=== PATIENT | female | born 1965 | race Two or more races ===

== ENCOUNTER 2024-07-26 17:42 | Emergency (ER) | payer BC, SELFPAY ==
[2024-07-26] VITALS (13 sets, daily range): BP systolic 125–146; BP diastolic 60–73; PULSE 60–86; TEMP 36.7–36.8; O2SAT 93–98; BMI 27.5
--- OUTSIDE RECORDS SUMMARY | 2024-07-26 17:55 | XMS_ITS | Encounter Summary ---
Author Organization [facility] Address [address] [place] [address] Care Team Providers Care Caterpillar Driver Name Role Phone Jacki Haskins MD Primary Care Provider [phone] Lorin Velazquez MD Primary Care Provider [phone] Jacki Haskins MD Unavailable [phone] Joanne Rothman SENIOR BUSINESS DEVELOPMENT ANALYST Unavailable [phone] Jacki Haskins MD Primary Care Provider [phone] Joanne Rothman SENIOR BUSINESS DEVELOPMENT ANALYST Unavailable [phone] Encounter Details Date Type Department Care Team (Late st Contact Info) Description 09/11/2022 Orders Only [facility] [address] [place] [id number] Joanne Rothman SENIOR BUSINESS DEVELOPMENT ANALYST [address] [place], [place] [id number] Social History Tobacco Use Types Packs/Day Years Used Date Smoking Tobacco: Never Assessed Comments Unknown Sex and Gender Information Value Date Recorded Sex Assigned at Female 01/11/2023 6:41 AM EST Legal Sex Female 6:41 AM EST Gender Identity Female 01/11/2023 6:41 AM EST Sexual Orientation Not on file documented as of this encounter Plan of Treatment Not on file documented as of this encounter Procedures Procedure Name Priority Date/Time Associated Diagnosis Comments DIABETIC RETINOPATHY SCREENING - OU - BOTH EYES Routine 09/06/2022 4:32 PM EDT documented in this encounter Results * Diabetic Retinopathy Screening - OU - Both Eyes (09/06/2022 4:32 PM EDT) Anatomical Region Laterality Modality Head Other us oJanne Rothman SENIOR BUSINESS DEVELOPMENT ANALYST OPHTH PHOTOGRAPHY Final Result documented in this encounter Visit Diagnoses Not on filedocumented in this encounter Care Teams Caterpillar Driver Relationship Specialty Start Date End Date Jacki Haskins MD [address] [place] [address] PCP - General Family Medicine 08/07/22 01/17/23 Lorin Velazquez MD [address] [place] [address] PCP - General Family Medicine 01/18/23 12/17/23 Joanne Rtohman NP [address] [place] [address] PCP - [place] [employer] 03/05/2202/01 Jacki Haskins MD [address] [facility] [place] [address] PCP - General Family Medicine 12/18/23 Joanne Rothman NP [address] [place] [address] PCP - [place] [employer] 06/03/24 Jacki Haskins MD [address] [place] [address] Family Medicine 01/18/23 documented as of this encounter
--- OUTSIDE RECORDS SUMMARY | 2024-07-26 17:55 | XMS_ITS | Clinical Summary ---
Author Organization [facility] Address [address] [place] [address] Care Team Providers Care Telephone Exchange Operator Name Role Phone Jacki Haskins MD Unavailable [phone] Jacki Haskins MD Primary Care Provider [phone] Joanne Rothman PACS ADMINISTRATOR Unavailable [phone] Allergies No known active allergies Medications Lancets miscIndications:Co ntrolled type 2 diabetes mellitus without complication, without long-term current use of insulin 1 Lancet in the morning. 100 each 2 3 Active OneTouch Ultra test stripIndications:T ype 2 diabetes mellitus without complication, without long-term current use of insulin DIRECTED DAILY 90 DAYS 100 strip 1 3 Active OneTouch Ultra test strip 3 Active Lancets (OneTouch Delica Plus [id number]) misc 1 LANCET IN THE MORNING. 3 Active empagliflozin (Jardiance) 10 MGIndications:Type 2 diabetes mellitus without complication, without long-term current use of insulin Take 1 tablet (10 mg) by mouth in the morning. 30 tablet 11 4 Active metFORMIN (Glucophage) 500 MG tabletIndications: Controlled type 2 diabetes mellitus without complication, without long-term current use of insulin TAKE 1 TABLET BY MOUTH EVERY 12 HOURS WITH A MEAL 180 tablet 1 4 Active OneTouch Ultra test stripIndications:T ype 2 diabetes mellitus without complication, without long-term current use of insulin TEST DIRECTED DAILY 100 strip 2 4 Active metFORMIN (Glucophage) 500 MG tabletIndications: Type 2 diabetes mellitus with other circulatory complication, without long-term current use of insulin Take 2 tablets (1,000 mg) by mouth in the morning and 2 tablets (1,000 mg) in the evening. Take with meals. 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 01/18/2023 Type 2 diabetes mellitus wit h circulatory disorder, without long-term current use of insulin 01/18/2023 DVT (deep venous thrombosis) 01/18/2023 Elevated liver enzymes 01/18/2023 Cancer of both ovaries 01/18/2023 Superficial skin lesion 01/17/2023 Elevated liver enzymes 01/08/2023 H/O: hysterectomy 01/08/2023 Other chronic pain 01/08/2023 Paresthesia of skin 01/08/2023 Primary hypertension 01/08/2023 Acute cellulitis 01/03/2023 Hypokalemia 01/03/2023 Hypomagnesemia 01/03/2023 Type 2 diabetes mellitus wit hout complication, without long-term current use of insulin 01/03/2023 Thoracic spondylosis without myelopathy 10/18/19 19 Overview (01/08/2023): Added automatically from request for surgery [id number] Malignant neoplasm of right ovary 03/11/2015 Encounters Date Type Department Care Team Description 06/17/2024 Refill [facility] [address] [place] [address] Joanne Rothman, PACS ADMINISTRATOR Type 2 diabetes mellitus without complications from Last 3 Months Immunizations Immunization Administration Dates Next Due Influenza, injectable, quadrivalent 12/04,12/23/2021,01/31/2018, 018,12/27/2016,12/27/2016 Moderna SARS-CoV-2 Vaccination 03/02/2021,2020,04/30/2020 Zoster, Recombinant 05/10/2023,05/10/2023 Family History Medical History Relation Name Comments Diabetes Father Esophageal cancer Father Thyroid cancer Father Diabetes Mother Uterine cancer Mother Relation Name Status Comments Father Mother Social History Tobacco Use Types Packs/Day Years Used Date Smoking Tobacco: Never Cigarettes Smokeless Tobacco: Never Tobacco Cessation:Counseling Given: Not Answered Alcohol Use Standard Drinks/Week Comments Never 0 (1 standard drink = 0.6 oz pur e alcohol) Caffine: 1 cup daily Comments Unknown Sex and Gender Information Value Date Recorded Sex Assigned at Female 01/11/2023 6:41 AM EST Legal Sex Female 6:41 AM EST Gender Identity Female 01/11/2023 6:41 AM EST Sexual Orientation Not on file Last Filed Vital Signs Vital Sign Reading Time Taken Comments Blood Pressure 130/84 07/12/2023 6:47 PM EDT Pulse 82 07/12/2023 6:47 PM EDT Temperature 36.2 C (97.1 F) 07/12/2023 6:47 PM EDT Respiratory Rate 18 05/10/2023 6:22 PM EST Oxygen Saturation 97% 07/12/2023 6:47 PM EDT Inhaled Oxygen Concentration - - Weight 82.6 kg (182 lb 3.2 oz) 07/12/2023 6:47 P M EDT Height 165.1 cm (5' 5 ) 07/12/2023 6:47 PM EDT Body Mass Index 30.32 07/12/2023 6:47 PM EDT Plan of Treatment Health Maintenance Due Date Last Done Comments CT Colonography 1965 Colonoscopy 1965 FIT-DNA 1965 Sigmoidoscopy 1965 Colorectal Cancer Screening 04/28/2017 FIT 04/28/2017 04/28/2016 FOBT 04/28/2017 04/28/2016 Mammogram 02/09/2022 02/09/2021, 04/06, 04/25/2016, Additional history exists Diabetes: Hemoglobin A1C 10/12/2023 024, 03/29/2023, 03/12/2023, Additional history exists Diabetes: Urine Protein Screening 03/12/2024 024 Influenza Vaccine (Season Ended) 2024 12/23/2021, 12/23/2021, 01/31/2018, Additional history exists Diabetes: Retinopathy Screening 03/08/2026 , 09/06/2022 Procedures Procedure Name Priority Date/Time Associated Diagnosis Comments DIABETIC RETINOPATHY SCREENING - OU - BOTH EYES Routine 03/08/2024 10:51 AM EST POCT GLYCOSYLATED HEMOGLOBIN (HGB A1C) Routine 07/12/2023 6:56 PM EDT Controlled type 2 diabetes mellitus without complication, without long-term current use of insulin ([facility]) MICROALBUMIN / CREATININE URINE RATIO Routine 03/12/2023 2:47 PM EST Type 2 diabetes mellitus without complication, without long-term current use of insulin ([facility]) BI MAMMOGRAM SCREENING TOMOSYNTHESIS BILATERAL Routine 02/09/2021 Encounter for screening mammogram for malignant neoplasm of breast from Last 3 Months or Most Recently Relevant to Health Maintenance Results * Diabetic Retinopathy Screening - OU - Both Eyes (03/08/2024 10:51 AM EST) Anatomical Region Laterality Modality Head Other Jacki Haskins MD OPHTH PHOTOGRAPHY Final Resul t * POCT glycosylated hemoglobin (Hb A1C) docked device (07/12/2023 6:56 PM EDT) Hemoglobin A1C 7.8 Blood Venous blood specimen / Unknown 07/12/2023 6:56 PM EDT us Joanne Rothman NP POINT OF CARE TEST ENTE R/EDIT ORDERABLES Final Result * Microalbumin / creatinine, urine ratio (03/12/2023 2:47 PM EST) CREATININE, RANDOM URINE 135 20 - 275 mg/dL [facility] ALBUMIN, URINE 3.6 See Note: mg/dL [facility] Comment: Reference Range: Reference Range Not established ALBUMIN/CREATININE RATIO, RANDOM URINE 27 <30 mcg/mg creat [facility] Comment: The ADA defines abnormalities in albumin excretion as follows: Albuminuria Category Result (mcg/mg creatinine) Normal to Mildly increased <30 Moderately increased 30-299 Severely increased > OR = 300 The ADA recommends that at least two of three specimens collected within a 3-6 month period be abnormal before considering a patient to be within a diagnostic category. Urine Urine specimen obtained by clean catch procedure / Unknown 03/12/2023 2:47 PM EST 03/12/2023 2:53 PM EST Narrative [facility] - 03/13/2023 10:46 AM EST SPLIT 03/12/2023 FROM [id number] Resulting Agency Comment Performing Organization Information Site ID: [email or web address] Name: [email or web address] Address: [address] [place] [address], [address] [place] [id number] Director: Bin Weldon MD Joanne Rothman NP LAB URINE ORDERABLES Fi nal Result [facility] * Bilateral screening mammogram with tomosynthesis (02/09/2021) Anatomical Region Laterality Modality Breast Bilateral Mammography Impressions 02/09/2021 12:00 AM EST BI RADS 2 : BENIGN MAMMOGRAM Board Certified Radiologist. Accredited by the ACR and FDA. MAMMOGRAPHY IS VERY IMPORTANT TO YOUR HEALTH. THE CURRENT [place] [employer] AND [employer]PREH[employer]WORK GUIDELINES RECOMMENDS ANNUAL MAMMOGRAPHY BEGINNING AT AGE 40. THIS FACILITY USES A REMINDER SYSTEM TO ENSURE ALL PATIENTS RECEIVE REMINDER NOTIFICATIONS AT THE APPROPRIATE TIME BASED ON THE RECOMMENDATIONS OF THIS EXAM. Report reported and signed by Layton Streeter on 02/10/2021 1311 Narrative 02/09/2021 12:00 AM EST PERFORMED AT [facility] LOCATION:[place] [address] COMPARISON: Dating back to April 25, 2016 and March 15, 2015. TECHNIQUE: 2D and 3D Tomosynthesis of the right and left breasts was performed. FINDINGS: Breast composition demonstrates scattered fibroglandular densities. No suspicious microcalcifications, asymmetry, architectural distortion or associated features are present. Overall appearance stable. Typically benign calcifications. Procedure Note CONVERSION, GENERIC - 09/08/2022 PERFORMED AT [facility] LOCATION:[place] [address] COMPARISON: Dating back to April 25, 2016 and March 15, 2015. TECHNIQUE: 2D and 3D Tomosynthesis of the right and left breasts wasperformed. FINDINGS: Breast composition demonstrates scattered fibroglandular densities. Nosuspicious microcalcifications, asymmetry, architectural distortion or associatedfeatures are present. Overall appearance stable. Typically benigncalcifications. IMPRESSION: BI RADS 2 : BENIGN MAMMOGRAM Board Certified Radiologist. Accredited by the ACR and FDA. MAMMOGRAPHY IS VERY IMPORTANT TO YOUR HEALTH. THE CURRENT [place] [employer] AND NATIONAL COMPREHENS[employer]WORK GUIDELINES RECOMMENDS ANNUALMAMMOGRAPHY BEGINNING AT AGE 40. THIS FACILITY USES A REMINDER SYSTEM TO ENSURE ALLPATIENTS RECEIVE REMINDER NOTIFICATIONS AT THE APPROPRIATE TIME BASED ON THERECOMMENDATIONS OF THIS EXAM. Report reported and signed by Layton Streeter on 02/10/2021 1311 us Jacki Haskins MD IMG BI PROCEDURES Final Resul t from Last 3 Months or Most Recently Relevant to Health Maintenance Insurance BS BS Care Teams Telephone Exchange Operator Relationship Specialty Start Date End Date Jacki Haskins MD [address] [place], [place] [id number] PCP - General Family Medicine 12/18/23 Joanne Rothman NP [address] [place], [place] [id number] PCP - [facility] 06/03/24 Jacki Haskins MD [address] [place], [place] [id number] Family Medicine 01/18/23
--- OUTSIDE RECORDS SUMMARY | 2024-07-26 17:55 | XMS_ITS | Encounter Summary ---
Author Organization [facility] Address [address] [place] [address] Care Team Providers Care Dispatcher Radio Name Role Phone Jacki Haskins MD Unavailable [phone] Jacki Haskins MD Primary Care Provider [phone] Joanne Rothman MATERIALS ENGINEERING TECHNICIAN Unavailable [phone] Encounter Details Date Type Department Care Team (Late st Contact Info) Description 03/10/2024 Orders Only [facility] [address] [place] [id number] Jacki Haskins MD [address] [place] [address] Social History Tobacco Use Types Packs/Day Years Used Date Smoking Tobacco: Never Cigarettes Smokeless Tobacco: Never Alcohol Use Standard Drinks/Week Comments Never 0 [...] BOTH EYES Routine 03/08/2024 10:51 AM EST documented in this encounter Results * Diabetic Retinopathy Screening - OU - Both Eyes (03/08/2024 10:51 AM EST) Anatomical Region Laterality Modality Head Other Jacki Haskins MD OPHTH PHOTOGRAPHY Final Resul t documented in this encounter Visit Diagnoses Not on filedocumented in this encounter Care Teams Dispatcher Radio Relationship Specialty Start Date End Date Jacki Haskins MD [address] [place], [place] [id number] PCP - General Family Medicine 12/18/23 Joanne Rothman NP [address] [place], [place] [id number] PCP - [facility] 06/03/24 Jacki Haskins MD [address] [place], [place] [id number] Family Medicine 01/18/23 documented as of this encounter
--- OUTSIDE RECORDS SUMMARY | 2024-07-26 17:55 | XMS_ITS | Clinical Summary ---
Author Organization [facility] Address [address] [place] [address] Care Team Providers Care Flame Hardening Machine Operator Name Role Phone Jacki Mijares MD Primary Care Pr ovider Allergies No known active allergies Medications ibuprofen (ADVIL;MOTRIN) 200 MG tablet Take 2 tablets by mouth every 6 hours as needed for Pain Active metFORMIN (GLUCOPHAGE) 500 MG tablet 1 tablet 3 Active JARDIANCE 10 MG tablet Take 1 tablet by mouth every morning Active blood glucose test strips (ONETOUCH ULTRA) strip TEST DIRECTED DAILY 4 Active estradiol (ESTRACE VAGINAL) 0.1 MG/GM vaginal creamIndication s:Vaginal atrophy Place 1g vaginally nightly for 14 days then twice weekly as needed for vaginal dryness 42.5 g 3 4 Active Active Problems Problem Noted Date Diagnosed Date Malignant neoplasm of right ovary 03/11/2015 Encounters Date Type Department Care Team Description 07/11/2024 Telephone [facility] [facility] [address] [place] [address] Bonnie Hilton PA-C Recall from Last 3 Months Family History Medical History Relation Name Comments Cancer Father thyroid and pro state Diabetes Father Stroke Father Relation Name Status Comments Father Social History Tobacco Use Types Packs/Day Years Used Date Smoking Tobacco: Never Smokeless Tobacco: Never Tobacco Cessation:Counseling Given: Not Answered Alcohol Use Standard Drinks/Week Comments No 0 (1 standard drink = 0.6 oz pur e alcohol) PHQ-2 Answer Date Recorded PHQ-2 Score 0 06/05/2018 Comments No Sex and Gender Information Value Date Recorded Sex Assigned at Not on file Legal Sex Female 2:10 PM EST Gender Identity Not on file Sexual Orientation Not on file Last Filed Vital Signs Vital Sign Reading Time Taken Comments Blood Pressure 139/73 11/29/2023 3:48 PM EDT Pulse 77 11/29/2023 3:48 PM EDT Temperature 36.4 C (97.6 F) 11/29/2023 3:48 PM EDT Respiratory Rate 16 04/10/2016 3:39 PM EST Oxygen Saturation 94% 11/29/2023 3:48 PM EDT Inhaled Oxygen Concentration - - Weight 81.2 kg (179 lb) 11/29/2023 3:48 PM EDT Height 167.6 cm (5' 6 ) 09/20/2022 3:36 PM EDT Body Mass Index 28.89 09/20/2022 3:36 PM EDT Plan of Treatment Health Maintenance Due Date Last Done Comments Depression Screen 1976 HIV screen 10/27/1979 Hepatitis C screen 1982 DTaP/Tdap/Td vaccine (1 - Tdap) 10/27/1983 Hepatitis B vaccine (1 of 3 - 19+ 3-dose series) 10/27/1983 Lipids 2004 Colonoscopy 2009 Fecal-DNA (Cologuard): [place] ge risk 2009 Sigmoidoscopy/CT colonography 2009 Pneumococcal 50+ years Vacci ne (1 of 1 - PCV) 2014 Colorectal Cancer Screen 04/28/2017 FIT/FOBT: Average risk 04/28/2017 04/28/2016 Breast cancer screen 02/09/2023 02/09/2021, 04/25/2016, 03/15/2014 COVID-19 Vaccine (4 - 2023-2 5 season) 2023 03/02/2021, 05/28/2020, 04/30/2020 Flu vaccine (Season Ended) 10/03/202412/23, 01/31/2018, 12/27/2016 Shingles vaccine Completed 08/07/2023, 05/10/2023 Hepatitis A vaccine Aged Out No longe r eligible based on patient's age to complete this topic Hib vaccine Aged Out No longer eligi ble based on patient's age to complete this topic Meningococcal (ACWY) vaccine Aged Out No longer eligible based on patient's age to complete this topic Meningococcal B vaccine Aged Out No l onger eligible based on patient's age to complete this topic Polio vaccine Aged Out No longer elig ible based on patient's age to complete this topic Procedures Procedure Name Priority Date/Time Associated Diagnosis Comments POCT FECAL IMMUNOCHEMICAL TEST (FIT) Routine 04/28/2016 10:59 AM EST Colon cancer screening [facility] DIGITAL SCREEN W OR WO CAD BILATERAL Routine 04/25/2016 Breast cancer screening from Last 3 Months or Most Recently Relevant to Health Maintenance Results * POCT Fecal Immunochemical Test (FIT) (04/28/2016 10:59 AM EST) Occult Blood Fecal negative Control present STOOL SPECIMEN / Unknown Eunice Hicks DICTAPHONE MECHANIC - WIRELESS ARCHITECT POINT OF CARE TEST OR DERABLES Final Result * [facility] Digital Screen Bilateral (04/25/2016) Anatomical Region Laterality Modality Breast Bilateral Mammography Eunice Hicks DICTAPHONE MECHANIC - WIRELESS ARCHITECT IMG MAMMOGRAPHY ORDER KELLY Edited Result - Final from Last 3 Months or Most Recently Relevant to Health Maintenance Insurance [place] [address] OUT OF STATE Member Subscriber Plan / Payer (Ef fective 2015-Present) Name:Joanne Phan Relation to Subscriber:Self Name:Joanne Phan Payer ID:Not on file Type:Not on file Address: [facility] [id number] [address] [employer] [address] OUT OF STATE Care Teams Flame Hardening Machine Operator Relationship Specialty Start Date End Date Jacki Mijares MD [address] [place] [address] PCP - General Family Medicine 07/16/20
--- OUTSIDE RECORDS SUMMARY | 2024-07-26 17:55 | XMS_ITS | Encounter Summary ---
Author Organization [facility] Address [address] [place] [address] Care Team Providers Care Pcmh Specialist Name Role Phone Jacki Haskins MD Primary Care Provider [phone] Lorin Velazquez MD Primary Care Provider [phone] Jacki Haskins MD Unavailable [phone] Joanne Rothman PIN DRAFTING MACHINE TENDER Unavailable [phone] Jacki Haskins MD Primary Care Provider [phone] Joanne Rothman PIN DRAFTING MACHINE TENDER Unavailable [phone] Encounter Details Date Type Department Care Team (Late st Contact Info) Description 09/11/2022 Abstract [facility] [address] [place] [address] Jacki Haskins MD [address] [place] [address] Social History Tobacco Use Types [...] on file documented as of this encounter Visit Diagnoses Not on filedocumented in this encounter Care Teams Pcmh Specialist Relationship Specialty Start Date End Date Jacki Haskins MD [address] [place] [address] PCP - General Family Medicine 08/07/22 01/17/23 Lorin Velazquez MD [address] [facility] [place] [address] PCP - General Family Medicine 01/18/23 12/17/23 Joanne Rothman NP [address] [facility] [place] [address] PCP - [place] [employer] 03/05/2202/01 Jacki Haskins MD [address] [facility] [place] [address] PCP - General Family Medicine 12/18/23 Joanne Rothman NP [address] [facility] [place] [address] PCP - [place] [employer] 06/03/24 Jacki Haskins MD [address] [facility] [place] [address] Family Medicine 01/18/23 documented as of this encounter
--- NOTE | 2024-07-26 18:35 | CT_ITS ---
The [address] [address] Patient Name: ADOLFO CESPEDES MRN: [id number] date: 1965 Sex: F Assigned Patient Location: ER Current Patient Location: ER Accession/Order Number: [id number] Exam Date: 07/26/2024 19:14 Report Date: 07/26/2024 19:21 At the request of: CATRACHITO RIGGS Procedure: CT abdomen pelvis wo con CT abdomen pelvis wo con 07/26/2024 7:07 PM SIGNS AND SYMPTOMS: Right flank pain TECHNIQUE: Multidetector ct axial images of the abdomen and pelvis were obtained without IV contrast. Multiplanar reformats were performed and reviewed to further define anatomy and possible pathology. CT was performed with one or more of the following dose reduction techniques: Automated exposure control, adjustment of the mA and/or kV according to patient size, or use of iterative reconstruction technique. COMPARISON: None. FINDINGS: Lower Chest: Within normal limits. ABDOMEN: Liver: Within normal limits. Bile Ducts: Normal caliber. Gallbladder: No calcified gallstones. Normal caliber wall. Pancreas: Within normal limits. Spleen: Calcified granulomas are noted in the spleen. Adrenals: Within normal limits. Kidneys: Within normal limits. Pelvis: Reproductive Organs: No pelvic masses. Ureters: Within normal limits. Bladder: Within normal limits. Bowel: There is no evidence of bowel obstruction. Uncomplicated colonic diverticula are noted. There is a normal appendix in the right lower quadrant. Mesenteric Lymph Nodes: No enlarged mesenteric lymph nodes. Peritoneum: No ascites or free air, no fluid collection. Vessels: within normal limits Retroperitoneum: Within normal limits. Abdominal Wall: Within normal limits. Bones: Degenerative changes are noted in the sacroiliac joints. Degenerative changes are present in the thoracic spine and lumbar spine. Degenerative changes are present in the hips. CT/CT abdomen pelvis wo con IMPRESSION: No bowel obstruction or obstructive uropathy. No free fluid or free air. No acute intra-abdominal pathology. Impression dictated by: Romeo Easley M.D. 07/26/2024 7:21 PM Dictation Location: [email or web address] Electronically authenticated by: [id number] Y Date: 07/26/2024 19:21
--- NOTE | 2024-07-26 18:35 | ECG_ITS ---
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 Measurements Intervals [place] Rate: 70 P: 0 KS: 164 QRS: 54 QRSD: 82 T: 61 QT: 416 QTc: 436 Interpretive Statements 1100 Sinus rhythm 9110 normal ECG No previous ECG available for comparison Electronically Signed On 07-27-2024 13:48:36 EDT by CORINNE SOLANO M.D.
--- NOTE | 2024-07-26 18:35 | XR_ITS ---
[place] [id number] Patient Name: ADOLFO CESPEDES MRN: [id number] date: 1965 Sex: F Assigned Patient Location: ED.MAIN Current Patient Location: ER Accession/Order Number: [id number] Exam Date: 07/26/2024 19:21 Report Date: 07/26/2024 19:23 At the request of: CATRACHITO RIGGS Procedure: XR chest 2V XR chest 2V 07/26/2024 7:07 PM SIGNS AND SYMPTOMS: ^back pain ^N PROTOCOL: Frontal and lateral radiograph of the chest COMPARISON: 08/14/2020 FINDINGS: The trachea is midline. The heart and mediastinal structures are within normal limits. The lung parenchyma is clear. The bony thorax is intact. XR/XR chest 2V IMPRESSION: No acute cardiopulmonary pathology. Impression dictated by: Romeo Easley M.D. 07/26/2024 7:23 PM Dictation Location: [employer] Electronically authenticated by: [id number] Y Date: 07/26/2024 19:23
--- NOTE | 2024-07-26 18:36 | ED_ITS ---
HPI HPI - General Adult General Chief complaint: Back Pain/Injury Stated complaint: BACK PAIN Time Seen by Provider: 07/26/24 18:12 Source: patient Mode of arrival: walk-in History of Present Illness HPI narrative: Patient is a 58-year-old female presents to the ER with her daughter and family member for evaluation of back pain. Patient speaks Welsh but understands some Syrian daughter is helping with translation at the bedside. Patient states she has been told she has arthritis in her back and this has bothered her for many years. She however has developed sharp pain in the right flank over the past 2 days with no notable fever or dysuria. She denies any vomiting or diarrhea. She has not ever had any abdominal surgeries. Patient describes the pain as moderate to severe, worse with movement but no provoking injury or symptoms. Patient notes pain still present even lying at rest. Location: Reports back (right lower back) Radiation: Reports flank Severity: severe Quality: Reports sharp Pain Consistency: Reports constant Relieving factors: Reports none Exacerbating factors: Reports movement Associated symptoms: Denies rash Related Data Previous Rx's ?Medication ?Instructions ?Recorded cephalexin 500 mg capsule 500 mg PO BID 7 days #14 cap s 07/26/24 lidocaine 5 % topical patch 1 patch topical DAILY PRN pain, 07/26/24 moderate #15 ea methocarbamol 750 mg tablet 750 mg PO TID PRN spasm 4 days #12 07/26/24 tabs Allergies Allergy/AdvReac Type Severity Reaction Status Date / Time No Known Drug Allergies Allergy Verified 07/26/24 17:57 Opioid HPI Opioid Management Most Recent Opioid Data: Last Pain Scale 2 Today, 19:48 Last ED Pain Assessment Today, 19:05 Last MAR Pain Assessment Today, 19:14 Review of Systems ROS Constitutional Denies: fever or chills Eyes Denies: change in vision or blurry vision Ears, nose, mouth, and throat Denies: throat pain or neck pain Cardiovascular Denies: chest pain or palpitations Respiratory Denies: shortness of breath or cough Gastrointestinal Denies: abdominal pain or nausea Genitourinary Denies: painful urination or urinary frequency Musculoskeletal Reports: back pain; Denies: neck pain, extremity pain, extremity swelling, joint pain or loss of height Integumentary/Breast Denies: rash, itching or redness Neurological Denies: headache Psychiatric Denies: anxiety Endocrine Denies: excessive urination PFSH PFSH Social History Little interest or pleasure in doing things: not at all Feeling down, depressed, or hopeless: not at all Exam Narrative Exam Narrative: Nurses notes and vital signs reviewed and patient is not hypoxic. General: The patient appears uncomfortable grimacing at rest. Skin: Warm, dry, no pallor noted. No evidence of zoster like rash Head: Normocephalic, atraumatic Neck: Supple, trachea mid-line, no tenderness, no lymphadenopathy Eye: Pupils are equal, round and reactive to light, EOMI Ears, Nose, Mouth, and Throat: external exam unremarkable Cardiovascular: Regular Rate and Rhythm Respiratory: Patient is in no distress, no accessory muscle use, lungs are clear to auscultation, no wheezing, rales or rhonchi. Chest Wall: no tenderness Back: non-tender in the midline lumbar and thoracic region., notable right side CVA tenderness and tenderness into the right flank. Musculoskeletal: normal ROM, no tenderness, no swelling GI: Normal bowel sounds, no tenderness to palpation, no masses appreciated. No rebound, guarding, or rigidity noted. abdomen non surgical/ Neurological: A&O x4, denies radicular symptoms. Psychiatric: Cooperative Constitutional Vital Signs, click to edit/add: Last Vital Signs Temp 98.2 F 07/26/24 17:58 Pulse 70 07/26/24 19:09 Resp 18 07/26/24 19:09 BP 125/60 07/26/24 19:09 Pulse Ox 98 07/26/24 19:09 Course Vital Signs Vital signs: Vital Signs Temperature 98.2 F 07/26/24 17:58 Pulse Rate 77 07/26/24 17:58 Respiratory Rate 18 07/26/24 17:58 Blood Pressure 126/66 07/26/24 17:58 Pulse Oximetry 97 07/26/24 17:58 Temperature 98.2 F 07/26/24 17:58 Pulse Rate 70 07/26/24 19:09 Respiratory Rate 18 07/26/24 19:09 Blood Pressure 125/60 07/26/24 19:09 Pulse Oximetry 98 07/26/24 19:09 Medical Decision Making MDM Narrative Medical decision making narrative: Pt declines intrepeter per daughter. Patient presents with right lower back pain. She has tenderness on palpation at the CVA region some pain with movement but pain is also noted into the right flank., Patient denies pain in the upper thoracic spine region. Lower lumbar is also nontender pain in the right mid lower back with forward flexion noted with change in position but pain still present at rest. Denie on the skin, urine sample be obtained given her age and description of symptoms we will also check some labs with CT of the abdomen and pelvis to eval for pathology such as kidney stone/ pyelnephritits. Patient reevaluated after receiving medication, she noted pain improved but still had some moderate pain she was given additional 2 mg IV morphine. We discussed her laboratory studies and urinalysis. Concern for a urinary tract infection without evidence of pyelonephritis or obstructive uropathy on CT. We discussed the need to continue p.o. fluids. Her elevated creatinine and alk phos were discussed at the bedside. Family states she has been taking a significant amount of Motrin daily at a baseline for her back pain. We encouraged her to follow-up with potential pain management referral and encouraged her to not take Motrin until her labs are rechecked with her PCP. She will be given a prescription of muscle relaxant and lidocaine patch to help with her pain she may use [id number] Tylenol arthritis. She is agreeable to Keflex prescription for treatment of her UTI. Should any symptoms worsen or new symptoms develop she should return to the ER in the interim but family and patient both verbalized a plan to have her labs rechecked with PCP at a later date pending follow-up in the office. Patient should call her PCP on Sunday to discuss a follow-up time. Lab Data Lab results reviewed: Yes I reviewed the patient's lab results Labs: Lab Results 07/26/24 07/26/24 Range/Units 18:40 18:45 WBC 5.7 (4.0-11.0) 10^3/uL RBC 4.42 (4.20-5.40) 10^6/uL Hgb 13.3 (12.0-16.0) g/dL Hct 39.4 (36.0-48.0) % MCV 89.1 (81.0-99.0) fL MCH 30.1 (26.7-34.0) pg MCHC 33.8 (29.9-35.2) g/dL RDW 13.1 (11.0-15.0) % Plt Count 178 (150-450) 10^3/uL MPV 10.5 (9.5-13.5) fL Neut % (Auto) 44.1 (43.0-75.0) % Lymph % (Auto) 39.0 (20.5-60.0) % [place] % (Auto) 12.0 (1.7-12.0) % Eos % (Auto) 4.2 (0.9-7.0) % Baso % (Auto) 0.5 (0.2-2.0) % Neut # (Auto) 2.5 (1.4-6.5) 10^3/uL Lymph # (Auto) 2.2 (1.2-3.8) 10^3/uL [place] # (Auto) 0.7 (0.3-0.8) 10^3/uL Eos # (Auto) 0.2 (0.0-0.7) 10^3/uL Baso # (Auto) 0.0 (0.0-0.1) 10^3/uL Abs Immat Gran (auto) 0.01 (0.00-0.03) 10^3/uL Imm/Tot Granulo (auto) 0.2 (0.0-0.5) % Sodium 140 (136-145) mmol/L Potassium 4.1 (3.5-5.1) mmol/L Chloride 105 (98-107) mmol/L Carbon Dioxide 28.4 (21.0-32.0) mmol/L Anion Gap 10.7 BUN 14.0 (7.0-18.0) mg/dL Creatinine 1.35 H (0.55-1.02) mg/dL Est GFR ( Amer) 49 L (>=60 mL/min/1.73m^2) Est GFR (Non-Af Amer) 40 L (>=60 mL/min/1.73m^2) BUN/Creatinine Ratio 10.4 Glucose 126 H (74-106) mg/dL Lactate 1.6 (0.4-2.0) mmol/L Calcium 9.4 (8.5-10.1) mg/dL Total Bilirubin 0.4 (0.2-1.0) mg/dL AST 19 (15-37) U/L ALT 22 (14-59) U/L Alkaline Phosphatase 178 H (46-116) U/L Troponin I High Sens 7.5 (4.0-51.3) pg/mL Total Protein 7.9 (6.4-8.2) g/dL Albumin 3.4 (3.4-5.0) g/dL Globulin 4.5 g/dL Albumin/Globulin Ratio 0.8 Lipase 75.0 (16.0-77.0) U/L Urine Color Yellow (YELLOW) Urine Clarity Clear (CLEAR) Urine pH 6.0 (5.0-9.0) Ur Specific [place] 1.025 (1.005-1.025) Urine Protein Trace (NEG/TRACE) mg/dL Urine Glucose (UA) Negative (NEGATIVE) mg/dL Urine Ketones 15 A (NEGATIVE) mg/dL Urine Occult Blood Negative (NEGATIVE) Urine Nitrite Negative (NEGATIVE) Urine Bilirubin Negative (NEGATIVE) Urine Urobilinogen 0.2 (0.2-1.0) EU/dL Ur Leukocyte Esterase Trace A (NEGATIVE) Urine RBC 0-2 (0-2) #/HPF Urine WBC 10-20 A (NONE SEEN) #/HPF Ur Squamous Epith Cells Few A (NONE/RARE) #/LPF Urine Crystals None seen (None Seen) #/HPF Urine Bacteria Small A (NONE SEEN) #/HPF Urine Casts None seen (NONE SEEN) #/LPF Urine Mucus Large A (NONE SEEN) Ur Culture Indicated? [place] [place] - abdomen: Radiologist's impression: ITS Impressions Abdomen/Pelvis CT 07/26/24 18:35 IMPRESSION: No bowel obstruction or obstructive uropathy. No free fluid or free air. No acute intra-abdominal pathology. Impression dictated by: Romeo Easley M.D. 07/26/2024 7:21 PM Dictation Location: [employer] Electronically authenticated by: [id number] Y Date: 07/26/2024 19:21 Chest X-Ray 07/26/24 18:35 IMPRESSION: No acute cardiopulmonary pathology. Impression dictated by: Romeo Easley M.D. 07/26/2024 7:23 PM Dictation Location: [employer] Electronically authenticated by: [id number] Y Date: 07/26/2024 19:23 ECG Data Attestation: I personally reviewed and interpreted this ECG as follows: Interpretation: EKG interpretation: Emergency Department physician interpretation, normal sinus rhythm 70 bpm, no ectopy, no ST segment elevation, normal axis. Discharge Plan Discharge Chief Complaint: Back Pain/Injury Clinical Impression: UTI (urinary tract infection), Lower back pain Patient Disposition: Home, Self-Care Time of Disposition Decision: 19:57 Condition: Good Mode of Transportation: Private Vehicle Prescriptions / Home Meds: New methocarbamol 750 mg tablet 750 mg PO TID PRN (Reason: spasm) 4 Days Qty: 12 0RF lidocaine 5 % adhesive patch,medicated 1 patch topical DAILY PRN (Reason: pain, moderate) Qty: 15 0RF Rx Instructions: leave on most painful area for up to 12 hrs cephalexin 500 mg capsule 500 mg PO BID 7 Days Qty: 14 0RF Print Language: Syrian Instructions: Urinary Tract Infection in Women (ED), Acute Low Back Pain (ED) Additional Instructions: Recommend appt with your family doctor on Sunday Tylenol arthritis as directed for pain No Motrin/ Ibuprofen use- elevated creatine ( kidney function) and elevated Alk Phos- likely repeat labs at later date with pcp Consider Pain management referral for back pain vs physical therapy. Urine culture pending on UTI. Referrals: Physician,Non-Staff, MD [Primary Care Provider] - 1 week
[2024-07-26 19:12] LABS: Basophils Percent Auto 0.5 % (0.2-2.0); Eosinophils Absolute Auto 0.2 10^3/uL (0.0-0.7); Eosinophils Percent Auto 4.2 % (0.9-7.0); Hematocrit 39.4 % (36.0-48.0); Hemoglobin 13.3 g/dL (12.0-16.0); Immature Granulocytes Abs Auto 0.01 10^3/uL (0.00-0.03); Immature Granulocytes Pct Auto 0.2 % (0.0-0.5); Lymphocytes Absolute Auto 2.2 10^3/uL (1.2-3.8); Mean Corpuscular HGB Conc 33.8 g/dL (29.9-35.2); Mean Corpuscular Hemoglobin 30.1 pg (26.7-34.0); Mean Corpuscular Volume 89.1 fL (81.0-99.0); Mean Platelet Volume 10.5 fL (9.5-13.5); Monocytes Absolute Auto 0.7 10^3/uL (0.3-0.8); Neutrophils Absolute Auto 2.5 10^3/uL (1.4-6.5); Neutrophils Percent Auto 44.1 % (43.0-75.0); Platelet Count 178 10^3/uL (150-450); Red Blood Count 4.42 10^6/uL (4.20-5.40); Red Cell Distribution Width 13.1 % (11.0-15.0); White Blood Count 5.7 10^3/uL (4.0-11.0)
[2024-07-26] MEDS: 0.9 % SODIUM CHLORIDE 1,000 ML 999 ML IV (19:13)
[2024-07-26 19:14] LABS: Bilirubin Urine NEGATIVE (NEGATIVE); Blood Urine NEGATIVE (NEGATIVE); Clarity Urine CLEAR (CLEAR); Color Urine YELLOW (YELLOW); Glucose Urine UA NEGATIVE (NEGATIVE); Ketones Urine 15 mg/dL (NEGATIVE); Leukocyte Esterase Urine TRACE (NEGATIVE); Nitrite Urine NEGATIVE (NEGATIVE); Protein Urine TRACE mg/dL (NEG/TRACE); Specific Gravity Urine 1.025 (1.005-1.025); Urobilinogen Urine 0.2 EU/dL (0.2-1.0)
[2024-07-26] MEDS: KETOROLAC TROMETHAMINE 30 MG/ML VIAL IVP (19:14)
[2024-07-26] MEDS: ORPHENADRINE 60 MG/2 ML VIAL IV (19:14)
[2024-07-26] MEDS: ONDANSETRON PF 4 MG/2 ML VIAL IV (19:15)
[2024-07-26 19:22] LABS: Bacteria Urine SMALL #/HPF (NONE SEEN); Mucus Urine LARGE (NONE SEEN); RBC Urine 0-2 #/HPF (0-2); Squamous Epithelial Cell Urine FEW #/LPF (NONE/RARE)
[2024-07-26 19:23] LABS: Cast Seen? NONE SEEN #/LPF (NONE SEEN); Crystals Seen? None Seen #/HPF (None Seen); Urine Culture Indicated YES-FRMC
[2024-07-26 19:28] LABS: Alanine Aminotransferase 22 U/L (14-59); Albumin Globulin Ratio 0.8; Albumin Level 3.4 g/dL (3.4-5.0); Alkaline Phosphatase 178 U/L (46-116); Anion Gap 10.7; Aspartate Amino Transferase 19 U/L (15-37); BUN Creatinine Ratio 10.4; Bilirubin Total 0.4 mg/dL (0.2-1.0); Calcium 9.4 mg/dL (8.5-10.1); Carbon Dioxide 28.4 mmol/L (21.0-32.0); Chloride 105 mmol/L (98-107); Estimated GFR (African America 49 (>=60 mL/min/1.73m^2); Estimated GFR (Non-African Ame 40 (>=60 mL/min/1.73m^2); Globulin 4.5 g/dL; Glucose 126 mg/dL (74-106); Potassium 4.1 mmol/L (3.5-5.1); Sodium 140 mmol/L (136-145); Total Protein 7.9 g/dL (6.4-8.2)
--- NOTE | 2024-07-26 19:28 | PC.NURSE ---
i introduced myself to this patient and her family, this patient voices right lower back pain 11/12 i explained to her about the medication she will be receiving this patient is aware awaiting lab results this patient voices no concerns and shows no signs of distress
[2024-07-26 19:30] LABS: Lactate/Lactic Acid 1.6 mmol/L (0.4-2.0); Troponin I High Sensitivity 7.5 pg/mL (4.0-51.3)
[2024-07-26] MEDS: MORPHINE SULFATE 2 MG/ML SYRINGE IV ×2 (19:31→19:48)
[2024-07-26] MEDS: CEPHALEXIN 500 MG CAPSULE PO (19:48)
--- NOTE | 2024-07-26 20:37 | PC.NURSE ---
i gave this patient verbal and written discharge orders and 3 e-scripts and this patient voices yes to understanding these. at time of discharge this patient and her family voices no concerns and this patient voices no signs of distress
== END 2024-07-26 20:36 | disposition home or self-care (01) ==
PROVIDERS: Personal Emergency Response Attendant; Emergency Provider Emergency Medicine
DX: N39.0 Urinary tract infection, site not specified (principal); M54.50 Low back pain, unspecified
CPT/HCPCS: 36415; 71046; 74176; 80053; 81001; 83605; 83690; 84484; 85025; 87086; 87088; 87186; 93005; 96374; 96375; 99285; J1885; J2270; J2360; J2405

== ENCOUNTER 2024-12-06 20:53 | Emergency (ER) | payer BC, SELFPAY ==
[2024-12-06 21:03] VITALS: BP 161/99; PULSE 87; TEMP 37.5; O2SAT 94; BMI 26.6
[2024-12-06 21:21] VITALS: O2SAT 94
--- NOTE | 2024-12-06 21:31 | XR_ITS ---
The [address] [address] Patient Name: ADOLFO CESPEDES MRN: [id number] date: 1965 Sex: F Assigned Patient Location: ER Current Patient Location: Accession/Order Number: [id number] Exam Date: 12/06/2024 22:00 Report Date: 12/07/2024 08:26 At the request of: FRITZ RIGGS Procedure: XR thoracic spine 3V THORACIC SPINE - - 3 views CLINICAL HISTORY: Mid back pain COMPARISON: Thoracic spine 09/18/2018 FINDINGS: Bones are grossly demineralized. Vertebral body heights appear grossly intact. Scattered endplate degenerative changes. Pedicles appear intact. XR/XR thoracic spine 3V IMPRESSION: SCATTERED ENDPLATE DEGENERATIVE CHANGES. NO ACUTE BONY PROCESS. Impression dictated by: Layton Yoon Jr., D.OYaneth 12/07/2024 8:26 AM Dictation Location: [facility] [employer] Electronically authenticated by: [id number] Y Date: 12/07/2024 08:26
--- NOTE | 2024-12-06 21:32 | ED.GENADUL1 ---
Documented by User: KEELY Tavares 12/06/24 22:16 HPI HPI - General Adult General Chief complaint: Back Pain/Injury Stated complaint: BACK HURTS Time Seen by Provider: 12/06/24 20:56 Source: patient and family Mode of arrival: Wheelchair Limitations: language barrier History of Present Illness HPI narrative: Patient is a 59-year-old female that presents to the emergency department with complaints of severe thoracic back pain after she was trying to lift/move a small table and had immediate increase in her back pain. She was just diagnosed recently with a thoracic compression fracture and is being followed at the [facility] [place] at the [facility]. She states that she does have osteoporosis. For her back pain she has been taking Cymbalta, tizanidine, and gabapentin. She denies any bowel or bladder incontinence/retention, saddle anesthesia, or bilateral lower extremity paresthesias or weakness. Her pain increases with movement or deep inspiration. History is mostly obtained through patient's daughter at bedside as patient speaks mostly Gibraltarian. Related Data Home Medications ?Medication ?Instructions ?Recorded ?Confirmed empagliflozin 10 mg tablet 10 mg PO QDAY 12/06/24 12/06/24 (Jardiance) gabapentin 100 mg capsule 100 mg PO Q8H 12/06/24 12/06/24 metformin 500 mg tablet 1,000 mg PO BID 12/06/24 12/06/24 tizanidine 4 mg tablet 4 mg PO .qhs 12/06/24 12/06/24 Previous Rx's ?Medication ?Instructions ?Recorded acetaminophen 300 mg-codeine 30 mg 1 tab PO Q6H PRN pain 5 days #20 12/06/24 tablet tabs Allergies Allergy/AdvReac Type Severity Reaction Status Date / Time No Known Drug Allergies Allergy Verified 12/06/24 21:03 Opioid HPI Opioid Management Most Recent Opioid Data: Last Pain Scale 10 Today, 21:38 Last MAR Pain Assessment Today, 21:38 Review of Systems ROS Status of ROS 10 or more systems reviewed and unremarkable except as noted in history and below PFSH PFSH Social History Little interest or pleasure in doing things: not at all Feeling down, depressed, or hopeless: not at all Exam Narrative Exam Narrative: General: No distress, age-appropriate Skin: Warm, dry, no pallor. No rash. Head: Normocephalic, atraumatic. Neck: Supple, non-tender. Eye: Pupils are equal, round and EOMI. No scleral icterus. Ears, Nose, Mouth, and Throat: No nasal mucosal hypertrophy. Oral mucosa is moist, no posterior oropharynx erythema, uvula is mid-line Cardiovascular: Regular Rate and Rhythm without murmur, gallop or rub. Respiratory: No accessory muscle use or respiratory distress. Lungs are clear to auscultation, no wheezing, rales or rhonchi Chest Wall: no tenderness Back: No midline thoracic or lumbar vertebral tenderness. Pain cannot be reproduced on exam. No signs of trauma to the back. No ecchymosis. No crepitance Musculoskeletal: Full ROM of all extremities, no calf or popliteal tenderness. 5/5 strength bilateral lower extremities. Sensation intact distally bilaterally. GI: Abdomen is soft, non-distended, non tender to palpation. No masses appreciated. No rebound, guarding, or rigidity noted. Neurological: A&O x4. No cranial nerve dysfunction observed. No truncal ataxia. Moves all extremities. Sensation intact. Psychiatric: Cooperative and interactive. Normal mood and affect. Constitutional Vital Signs, click to edit/add: Last Vital Signs Temp 99.5 F 12/06/24 21:03 Pulse 87 12/06/24 21:03 Resp 16 12/06/24 21:21 BP 161/99 H 12/06/24 21:03 Pulse Ox 94 L 12/06/24 21:21 O2 Del Method Room Air 12/06/24 21:21 Course Vital Signs Vital signs: Vital Signs Temperature 99.5 F 12/06/24 21:03 Pulse Rate 87 12/06/24 21:03 Respiratory Rate 16 12/06/24 21:03 Blood Pressure 161/99 H 12/06/24 21:03 Pulse Oximetry 94 L 12/06/24 21:03 Oxygen Delivery Method Room Air 12/06/24 21:03 Temperature 99.5 F 12/06/24 21:03 Pulse Rate 87 12/06/24 21:03 Respiratory Rate 16 12/06/24 21:21 Blood Pressure 161/99 H 12/06/24 21:03 Pulse Oximetry 94 L 12/06/24 21:21 Oxygen Delivery Method Room Air 12/06/24 21:21 Medical Decision Making MDM Narrative Medical decision making narrative: This is a 59-year-old female that presented to the emergency department with complaints of increased back pain after moving a small table earlier today. Patient speaks mostly Gibraltarian and her daughter is at bedside and helps interpret some of the conversation. Patient does understand and answer some of my questions. She was recently diagnosed with osteoporosis and thoracic compression fracture and is being followed by the [facility] [place] through the [facility]. She has been on duloxetine, tizanidine, and gabapentin. She has not been compliant with some of these medications as she has been having to take NyQuil for a URI and did not want to have extreme grogginess. On exam patient appears uncomfortable, sitting in the ED cart. Blood pressure is hypertensive, otherwise vitals are stable. Patient afebrile temperature 99.5. On exam pain cannot be reproduced, no midline tenderness no paraspinal tenderness in the thoracic region. No signs of trauma to the back. 5/5 strength bilateral lower extremities. Sensation is intact distally bilaterally. IM Toradol and Norflex ordered. X-ray thoracic spine ordered. At this time 2200 patient was signed out to Dr. William at the end of my shift with x-ray pending. Disposition will depend on x-ray and pain control. Differential Diagnosis Differential Diagnosis: New thoracic compression fracture, acute on chronic back pain Discharge Plan Discharge Chief Complaint: Back Pain/Injury Clinical Impression: Thoracic back pain Patient Disposition: Home, Self-Care Time of Disposition Decision: 22:38 Condition: Good Mode of Transportation: Private Vehicle Prescriptions / Home Meds: New acetaminophen-codeine 300-30 mg tablet 1 tab PO Q6H PRN (Reason: pain) 5 Days Qty: 20 0RF No Action Jardiance 10 mg tablet 10 mg PO QDAY gabapentin 100 mg capsule 100 mg PO Q8H metformin 500 mg tablet 1,000 mg PO BID tizanidine 4 mg tablet 4 mg PO .qhs Print Language: Kittitian Instructions: Vertebral Compression Fracture (ED), Thoracic Pain (ED), Procedures for Compression Fractures of the Spine (DC) Referrals: Physician,Non-Staff, MD [Primary Care Provider] - 1 week Documented by User: Scott William MD 12/06/24 22:40 HPI HPI - General Adult General Chief complaint: Back Pain/Injury Stated complaint: BACK HURTS Time Seen by Provider: 12/06/24 20:56 Related Data Home Medications ?Medication ?Instructions ?Recorded ?Confirmed empagliflozin 10 mg tablet 10 mg PO QDAY 12/06/24 12/06/24 (Jardiance) gabapentin 100 mg capsule 100 mg PO Q8H 12/06/24 12/06/24 metformin 500 mg tablet 1,000 mg PO BID 12/06/24 12/06/24 tizanidine 4 mg tablet 4 mg PO .qhs 12/06/24 12/06/24 Previous Rx's ?Medication ?Instructions ?Recorded acetaminophen 300 mg-codeine 30 mg 1 tab PO Q6H PRN pain 5 days #20 12/06/24 tablet tabs Allergies Allergy/AdvReac Type Severity Reaction Status Date / Time No Known Drug Allergies Allergy Verified 12/06/24 21:03 Opioid HPI Opioid Management Most Recent Opioid Data: Last Pain Scale 10 Today, 21:38 Last MAR Pain Assessment Today, 21:38 PFSH PFSH Social History Little interest or pleasure in doing things: not at all Feeling down, depressed, or hopeless: not at all Exam Constitutional Vital Signs, click to edit/add: Last Vital Signs Temp 99.5 F 12/06/24 21:03 Pulse 87 12/06/24 21:03 Resp 16 12/06/24 21:21 BP 161/99 H 12/06/24 21:03 Pulse Ox 94 L 12/06/24 21:21 O2 Del Method Room Air 12/06/24 21:21 Course Vital Signs Vital signs: Vital Signs Temperature 99.5 F 12/06/24 21:03 Pulse Rate 87 12/06/24 21:03 Respiratory Rate 16 12/06/24 21:03 Blood Pressure 161/99 H 12/06/24 21:03 Pulse Oximetry 94 L 12/06/24 21:03 Oxygen Delivery Method Room Air 12/06/24 21:03 Temperature 99.5 F 12/06/24 21:03 Pulse Rate 87 12/06/24 21:03 Respiratory Rate 16 12/06/24 21:21 Blood Pressure 161/99 H 12/06/24 21:03 Pulse Oximetry 94 L 12/06/24 21:21 Oxygen Delivery Method Room Air 12/06/24 21:21 Medical Decision Making MDM Narrative Medical decision making narrative: This is a 59-year-old female that presented to the emergency department with complaints of increased back pain after moving a small table earlier today. Patient speaks mostly Gibraltarian and her daughter is at bedside and helps interpret some of the conversation. Patient does understand and answer some of my questions. She was recently diagnosed with osteoporosis and thoracic compression fracture and is being followed by the [facility] [place] through the [facility]. She has been on duloxetine, tizanidine, and gabapentin. She has not been compliant with some of these medications as she has been having to take NyQuil for a URI and did not want to have extreme grogginess. On exam patient appears uncomfortable, sitting in the ED cart. Blood pressure is hypertensive, otherwise vitals are stable. Patient afebrile temperature 99.5. On exam pain cannot be reproduced, no midline tenderness no paraspinal tenderness in the thoracic region. No signs of trauma to the back. 5/5 strength bilateral lower extremities. Sensation is intact distally bilaterally. IM Toradol and Norflex ordered. X-ray thoracic spine ordered. At this time 0 patient was signed out to Dr. William at the end of my shift with x-ray pending. Disposition will depend on x-ray and pain control. JK 10:40pm thoracic spine x-rays on my interpretation showed what appeared to be a single compression fracture. She has an appointment on December 17 at the [facility] for evaluation with specialist. She has tizanidine and gabapentin at home and have prescribed her Tylenol 3. She was also given a work note for December 08. Treatment diagnosis and follow-up were discussed with the patient and her daughter. Imaging Data Thoracic x-ray: My impression: Known compression fracture Discharge Plan Discharge Chief Complaint: Back Pain/Injury Clinical Impression: Thoracic back pain Patient Disposition: Home, Self-Care Time of Disposition Decision: 22:38 Condition: Good Mode of Transportation: Private Vehicle Prescriptions / Home Meds: New acetaminophen-codeine 300-30 mg tablet 1 tab PO Q6H PRN (Reason: pain) 5 Days Qty: 20 0RF No Action Jardiance 10 mg tablet 10 mg PO QDAY gabapentin 100 mg capsule 100 mg PO Q8H metformin 500 mg tablet 1,000 mg PO BID tizanidine 4 mg tablet 4 mg PO .qhs Print Language: Kittitian Instructions: Vertebral Compression Fracture (ED), Thoracic Pain (ED), Procedures for Compression Fractures of the Spine (DC) Referrals: Physician,Non-Staff, MD [Primary Care Provider] - 1 week
[2024-12-06] MEDS: KETOROLAC TROMETHAMINE 30 MG/ML VIAL IM (21:38)
[2024-12-06] MEDS: ORPHENADRINE 60 MG/2 ML VIAL IM (21:39)
[2024-12-06 22:46] VITALS: BP 134/67; PULSE 76; O2SAT 95
== END 2024-12-06 22:48 | disposition home or self-care (01) ==
PROVIDERS: Emergency Provider Emergency Medicine
DX: M54.6 Pain in thoracic spine (principal); M81.0 Age-related osteoporosis without current pathological fracture; M48.54XA Collapsed vertebra, not elsewhere classified, thoracic region, initial encounter for fracture; Z79.899 Other long term (current) drug therapy
CPT/HCPCS: 72072; 96372; 99284; J1885; J2360